=== PATIENT | male | born 1965 | race Caucasian/White ===

== ENCOUNTER → 2021-12-07 | Outpatient (CLI) | payer BC | LOC: NM 09:24 | DX: C15.5 Malignant neoplasm of lower third of esophagus (principal) | CPT/HCPCS: 78306; A9503 ==

== ENCOUNTER → 2022-02-15 | Day surgery (SDC) | payer BC ==
[~2022-02-15] MED LIST: CANDICIDAL CAP1 EACH PO; LOVENOX SY60 MG/0.6 SQ; NEXIUM20 MG PO; ONE-DAILY MULT1 EACH PO
== END | disposition home or self-care (01) ==
LOC: OR 05:15
DX: C34.90 Malignant neoplasm of unspecified part of unspecified bronchus or lung (principal); Z85.01 Personal history of malignant neoplasm of esophagus; J44.9 Chronic obstructive pulmonary disease, unspecified; K21.9 Gastro-esophageal reflux disease without esophagitis; Z79.899 Other long term (current) drug therapy
CPT/HCPCS: 77001; C1769; C1788; J0690; J1100; J1642; J2001; J2250; J2405; J2704; J3010; J7030; J7040

== ENCOUNTER → 2022-03-21 | Outpatient (CLI) | payer BC | LOC: ECHO 11:00 | DX: C15.5 Malignant neoplasm of lower third of esophagus (principal); C79.31 Secondary malignant neoplasm of brain | CPT/HCPCS: ECHO; 93306 ==